=== PATIENT | male | born 1950 | race Caucasian/White ===

== ENCOUNTER 2018-03-27 09:20 | Day surgery (SDC) | payer OTHER ==
[2018-03-26 08:42] VITALS: BMI 31.4
--- NOTE | 2018-03-27 08:08 | P.GSHP ---
History of Present Illness H&P Date: 03/27/18 CHIEF COMPLAINT: Colon screen HISTORY OF PRESENT ILLNESS: The patient is a 67-year-old male who presents for colon screen. Lower endoscopy was offered for further evaluation and management. PAST MEDICAL HISTORY: Please see list. PAST SURGICAL HISTORY: Please see list. MEDICATIONS: Please see list. ALLERGIES: Please see list. SOCIAL HISTORY: No illicit drug use FAMILY HISTORY: No reports of Crohn disease or ulcerative colitis. REVIEW OF ORGAN SYSTEMS: CONSTITUTIONAL: No reports of fevers or chills. PHYSICAL EXAM: VITAL SIGNS: Stable GENERAL: Well-developed pleasant in no acute distress. HEENT: No scleral icterus. Extraocular movements grossly intact. Moist buccal mucosa. NECK: Supple without lymphadenopathy. CHEST: Unlabored respirations. Equal bilateral excursions. CARDIOVASCULAR: Regular rate and rhythm. Distal 2+ pulses. ABDOMEN: Soft, nontender, nondistended. MUSCULOSKELETAL: No clubbing, cyanosis, or edema. ASSESSMENT: 1. Colon screen. PLAN: 1. Recommend proceeding with a lower endoscopy Past Medical History Past Medical History: Cancer, CVA/TIA, Diabetes Mellitus, Osteoarthritis (OA), Pneumonia, Prostate Disorder Additional Past Medical History / Comment(s): cluster headaches, kidney stones, gout, stroke-unknown date-no effects, hx prostate cancer-tx with radiation, diet control diabetic, bleeds easily, History of Any Multi-Drug Resistant Organisms: None Reported Past Surgical History: Orthopedic Surgery Additional Past Surgical History / Comment(s): rt elbow surgery x 2, left cataract Past Anesthesia/Blood Transfusion Reactions: No Reported Reaction Smoking Status: Never smoker - Past Family History Son(s) Family Medical History: Cancer Mother Family Medical History: Deep Vein Thrombosis (DVT) Medications and Allergies Home Medications Medication Instructions Recorded Confirmed Type Allopurinol [Zyloprim] 300 mg PO DAILY 09/23/14 03/26/18 History Aspirin 81 mg PO DAILY 09/23/14 03/26/18 History Verapamil HCl [Calan] 80 mg PO Q48H 09/23/14 03/26/18 History Atorvastatin Calcium [Lipitor] 20 mg PO DAILY 03/26/18 03/26/18 History Tamsulosin HCl [Flomax] 0.4 mg PO HS 03/26/18 03/26/18 History Verapamil [Isoptin] 40 mg PO Q48H 03/26/18 03/26/18 History Vitamin D-2 1.25 mg PO Q14D 03/26/18 03/26/18 History Allergies Allergy/AdvReac Type Severity Reaction Status Date / Time bee pollen [Bee Pollen] Allergy Anaphylaxis Verified 03/26/18 08:29
[~2018-03-27 09:20] MED LIST: LACTATED RINGERS 1,000 ML IV SCH; LIDOCAINE 1% 20 ML VIAL (10MG/ML) FOR IV START INTRADERMA PRN
[2018-03-27] MEDS ORDERED: LACTATED RINGERS 1,000 ML IV ONE (10:43)
[2018-03-27 10:48] VITALS: RESP 18; TEMP 97
[2018-03-27 10:54] LABS: Glucose,Whole Blood 116 mg/dL (75-99)
[2018-03-27] MEDS ORDERED: PROPOFOL 10 MG/ML 20 ML VIAL IV ONE (11:32)
--- NOTE | 2018-03-27 12:02 | P.PCN ---
Date of Procedure: 03/27/18 Description of Procedure: PREOPERATIVE DIAGNOSIS: Colonoscopy screening. POSTOPERATIVE DIAGNOSIS: Colonoscopy screening. Diverticulosis, scattered. Arteriovenous malformation along the rectum Internal hemorrhoids, grade 2 Prostatic hyperplasia OPERATION: Colonoscopy to the ileocecal valve and appendiceal orifice. SURGEON: Caroline Wilson MD. ANESTHESIA: MAC. INDICATIONS: The patient is a 67-year-old male who presents for colonoscopy screening. Benefits and risks were described and informed consent was obtained. DESCRIPTION OF PROCEDURE: The patient had undergone Gatorade, MiraLAX and Dulcolax prep. He had been brought into the operating room and laid in the left lateral decubitus position. After adequate intravenous sedation, the rectum was examined with 2% lidocaine jelly. The prostate was firm and without nodularity. No external hemorrhoids were encountered. The rectal tone was within normal limits. No lesions were palpated in the rectal vault. An Olympus colonoscope was advanced until the ileocecal valve and appendiceal orifice were clearly viewed. The prep was excellent with clear visualization of the mucosal folds. The scope was removed with visualization of each mucosal fold. Sigmoid diverticulosis was encountered. No colonic polyps were found. Arteriovenous malformation involving the rectum was identified with minimal oozing. Retroflexion of the scope demonstrated grade 2 internal hemorrhoids without active bleeding or inflammation. The colon was desufflated. The patient had tolerated the procedure well. Withdrawal time was over 6 minutes. FINDINGS: Internal hemorrhoids, grade 2 No external prolapsed hemorrhoids. Arteriovenous malformations of rectum with recent bleed. No adenomatous polyps. Moderate sigmoid diverticulosis with a few scattered diverticulosis RECOMMENDATIONS: Lower endoscopy in 5 years, 2022 Plan - Discharge Summary New Discharge Prescriptions: No Action Verapamil HCl [Calan] 80 mg PO Q48H Aspirin 81 mg PO DAILY Allopurinol [Zyloprim] 300 mg PO DAILY Verapamil [Isoptin] 40 mg PO Q48H Tamsulosin HCl [Flomax] 0.4 mg PO HS Atorvastatin Calcium [Lipitor] 20 mg PO DAILY Vitamin D-2 1.25 mg PO Q14D Discharge Medication List Allopurinol [Zyloprim] 300 mg PO DAILY 09/23/14 [History] Aspirin 81 mg PO DAILY 09/23/14 [History] Verapamil HCl [Calan] 80 mg PO Q48H 09/23/14 [History] Atorvastatin Calcium [Lipitor] 20 mg PO DAILY 03/26/18 [History] Tamsulosin HCl [Flomax] 0.4 mg PO HS 03/26/18 [History] Verapamil [Isoptin] 40 mg PO Q48H 03/26/18 [History] Vitamin D-2 1.25 mg PO Q14D 03/26/18 [History]
[2018-03-27 12:09] LABS: Glucose,Whole Blood 116 mg/dL (75-99)
[2018-03-27 12:16] VITALS: BP 113/72; PULSE 60
== END 2018-03-27 12:35 | disposition home or self-care (01) ==
LOC: ORWHC2ENDO 09:20
PROVIDERS: ATTEND Surgery Plastic and Reconstructive Surgery
DX: Z12.11 Encounter for screening for malignant neoplasm of colon (principal); Q27.39 Arteriovenous malformation, other site; K64.1 Second degree hemorrhoids; E11.9 Type 2 diabetes mellitus without complications; N40.0 Benign prostatic hyperplasia without lower urinary tract symptoms; I10 Essential (primary) hypertension; E78.5 Hyperlipidemia, unspecified; M19.90 Unspecified osteoarthritis, unspecified site; Z86.73 Personal history of transient ischemic attack (TIA), and cerebral infarction without residual deficits; Z85.46 Personal history of malignant neoplasm of prostate; Z92.3 Personal history of irradiation; Z79.82 Long term (current) use of aspirin; Z79.899 Other long term (current) drug therapy; Z91.030 Bee allergy status
CPT/HCPCS: J2704; G0121

== ENCOUNTER 2018-05-28 08:42 | Emergency (ER) | payer MEDICARE, OTHER ==
[2018-05-28] MEDS ORDERED: ORPHENADRINE 30 MG/ML 2 ML VIAL IVP STA (08:57)
[2018-05-28] MEDS ORDERED: diphenhydrAMINE 50 MG/ML 1 ML VIAL IVP STA (08:57)
[2018-05-28] MEDS ORDERED: KETOROLAC 30 MG/ML 1 ML VIAL IVP STA (08:57)
[2018-05-28] MEDS ORDERED: SODIUM CHLORIDE 0.9% 500 ML IV ONE (08:58)
[2018-05-28] MEDS ORDERED: METOCLOPRAMIDE 5 MG/ML 2 ML VIAL IVP STA (08:58)
--- NOTE | 2018-05-28 09:03 | ED ---
Headache HPI - General Chief Complaint: Headache Stated Complaint: cluster headches Time Seen by Provider: 05/28/18 08:51 Source: patient, RN notes reviewed Mode of arrival: ambulatory Limitations: no limitations - History of Present Illness Initial Comments: 67-year-old male presents emergency Department chief complaint of a headache. Patient states that his been diagnosed with cluster headaches in the past. He always gets pain in the occipital region. He states started yesterday went and seen his primary care physician who gave her sumatriptan. Patient states that patient states that this is like his typical headaches he denies any blurred vision, photophobia, nausea vomiting, fever or chills. He states he has no neck pain no focal weakness. He states that the Imitrex did help some but the headache returned. Patient states he has had to come to the ER several times for headaches in the past. He's had multiple imaging done with no acute findings. - Related Data Home Medications Medication Instructions Recorded Confirmed Allopurinol [Zyloprim] 300 mg PO DAILY 09/23/14 05/28/18 Aspirin 81 mg PO DAILY 09/23/14 05/28/18 Verapamil HCl [Calan] 80 mg PO Q48H 09/23/14 05/28/18 Atorvastatin Calcium [Lipitor] 20 mg PO DAILY 03/26/18 05/28/18 Tamsulosin HCl [Flomax] 0.4 mg PO HS 03/26/18 05/28/18 Vitamin D-2 1.25 mg PO Q14D 03/26/18 05/28/18 Triamcinolone 0.025% Cream 1 applic TOPICAL DAILY PRN 05/28/18 05/28/18 [Kenalog 0.025% Cream] Allergies Allergy/AdvReac Type Severity Reaction Status Date / Time bee pollen [Bee Pollen] Allergy Anaphylaxis Verified 05/28/18 09:16 Review of Systems ROS Statement: Those systems with pertinent positive or pertinent negative responses have been documented in the HPI. ROS Other: All systems not noted in ROS Statement are negative. Past Medical History Past Medical History: Cancer, CVA/TIA, Diabetes Mellitus, Osteoarthritis (OA), Pneumonia, Prostate Disorder Additional Past Medical History / Comment(s): cluster headaches, kidney stones, gout, stroke-unknown date-no effects, hx prostate cancer-tx with radiation, diet control diabetic, bleeds easily, History of Any Multi-Drug Resistant Organisms: None Reported Past Surgical History: Orthopedic Surgery Additional Past Surgical History / Comment(s): rt elbow surgery x 2, left cataract Past Anesthesia/Blood Transfusion Reactions: No Reported Reaction Past Psychological History: No Psychological Hx Reported Smoking Status: Never smoker Past Alcohol Use History: None Reported Past Drug Use History: None Reported - Past Family History Son(s) Family Medical History: Cancer Mother Family Medical History: Deep Vein Thrombosis (DVT) General Exam Limitations: no limitations General appearance: alert, in no apparent distress Head exam: Present: atraumatic, normocephalic, normal inspection Neck exam: Present: normal inspection, full ROM. Absent: tenderness, meningismus, lymphadenopathy Respiratory exam: Present: normal lung sounds bilaterally. Absent: respiratory distress, wheezes, rales, rhonchi, stridor Cardiovascular Exam: Present: regular rate, normal rhythm, normal heart sounds. Absent: systolic murmur, diastolic murmur, rubs, gallop, clicks Neurological exam: Present: alert, oriented X3, CN II-XII intact, reflexes normal, other (Finger to nose intact bilaterally without over shooting). Absent : motor sensory deficit Course Vital Signs 05/28/18 08:43 Temperature 98.3 F Pulse Rate 78 Respiratory 18 Rate Blood Pressure 108/65 O2 Sat by Pulse 98 Oximetry Medical Decision Making - Medical Decision Making 67-year-old male presented for chronic headache issues. Patient had normal neuro exam and was given IV medications and which he states that his headache is completely resolved. Neuro exam was preformed in his normal. Patient will follow-up with his PCP return for any worsening symptoms. Disposition Clinical Impression: Headache Disposition: HOME SELF-CARE Condition: Stable Instructions: Acute Headache (ED) Additional Instructions: Please return to the Emergency Department if symptoms worsen or any other concerns. Is patient prescribed a controlled substance at d/c from ED?: No Referrals: Homer Lawton DO [Primary Care Provider] - 1-2 days Time of Disposition: 11:09
[2018-05-28] MEDS ORDERED: DIAZEPAM 5 MG/ML 2 ML INJ IVP STA (10:21)
[2018-05-28 11:30] VITALS: BP 106/61; PULSE 50; RESP 16; TEMP 97.8
== END 2018-05-28 11:41 | disposition home or self-care (01) ==
LOC: EC 08:42
DX: R51 Headache (principal); E11.9 Type 2 diabetes mellitus without complications; M19.90 Unspecified osteoarthritis, unspecified site; M10.9 Gout, unspecified; Z79.82 Long term (current) use of aspirin; Z79.899 Other long term (current) drug therapy; Z91.018 Allergy to other foods; Z87.442 Personal history of urinary calculi; Z85.46 Personal history of malignant neoplasm of prostate; Z92.3 Personal history of irradiation
CPT/HCPCS: 99283; 96374; 96375 ×4; 96361; J1200; J2360; J2765; J3360; J1885

== ENCOUNTER → 2018-05-29 | Outpatient (CLI) | payer OTHER, MEDICARE ==
--- NOTE | 2018-05-29 15:30 | CT ---
EXAMINATION TYPE: CT brain wo con DATE OF EXAM: 05/29/2018 COMPARISON: 03/03/2016 HISTORY: 67-year-old male Cluster headache syndrome TECHNIQUE: Examination was done in axial plane without intravenous contrast. Coronal and sagittal r econstructions performed. CT DLP: 956.6 mGycm Automated exposure control for dose reduction was used. FINDINGS: There is no evidence of acute intracranial hemorrhage, acute ischemic changes, mass, mass-effect, or extra-axial fluid collection. There is no effacement of cerebral sulci or basal subarachnoid cister ns. There is no hydrocephalus. There is no midline shift. Skaggs-white matter distinction is preserv ed. Megacisterna magna incidentally noted. Paranasal sinuses and mastoid air cells well pneumatized. Orbits and globes are intact. IMPRESSION: No acute intracranial abnormality seen.
== END ==
LOC: RADCTMAIN 14:38
PROVIDERS: ATTEND Family Medicine
DX: G44.009 Cluster headache syndrome, unspecified, not intractable (principal)
CPT/HCPCS: 70450

== ENCOUNTER → 2021-01-03 | Outpatient (CLI) | payer BC ==
--- NOTE | 2021-01-03 15:17 | XR ---
EXAMINATION TYPE: XR Hip Complete RT DATE OF EXAM: 01/03/2021 CLINICAL HISTORY: Right hip pain. TECHNIQUE: AP and frogleg views of the right hip are obtained. COMPARISON: CT abdomen and pelvis March 03, 2016. FINDINGS: There is no acute fracture/dislocation evident in the right hip. Mild to moderate superior joint space loss with mild acetabular spurring and right hip is redemonstrated. No significant molina ge from 2016 CT. New brachytherapy seeds in the prostate gland overlying the pubic symphysis noted. IMPRESSION: As above.
== END ==
LOC: RADXRMAIN 14:55
PROVIDERS: ATTEND Family Medicine
DX: M76.891 Other specified enthesopathies of right lower limb, excluding foot (principal)
CPT/HCPCS: 73502

== ENCOUNTER 2021-07-08 13:38 | Emergency (ER) | payer BC, MEDICARE ==
[2021-07-08 13:49] VITALS: TEMP 98
[2021-07-08 14:10] VITALS: RESP 20
[2021-07-08 15:08] VITALS: PULSE 61
[2021-07-08] MEDS ORDERED: methylPREDNISolone SOD SUCCI 125 MG/2 ML VIAL IV STA (15:25)
[2021-07-08] MEDS ORDERED: diphenhydrAMINE 50 MG/ML 1 ML VIAL IVP STA (15:25)
[2021-07-08] MEDS ORDERED: SODIUM CHLORIDE 0.9% 500 ML 500 ML IV STA (15:25)
[2021-07-08] MEDS ORDERED: FAMOTIDINE 20 MG/2 ML VIAL IV STA (15:25)
--- NOTE | 2021-07-08 16:15 | ED ---
Allergic Reaction HPI - General Chief complaint: Allergic Reaction Stated complaint: Allergic Reaction Bee Sting Time Seen by Provider: 07/08/21 14:45 Source: patient Mode of arrival: wheelchair Limitations: no limitations - History of Present Illness Initial Comments: Patient is a 70-year-old male presenting to the emergency department after being stung and his left index finger approximately 2 hours prior to arrival.. 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 He does not have an EpiPen. Patient states he is having increasing pain in his left finger that is shooting up his left arm. He states he only got stung by one yellow jacket. He denies any difficulty in breathing, no scratchy throat, no hives. He denies any nausea or vomiting. Patient denies any fevers or chills. No chest pain. He has no further complaints. He did not take any medications prior to arrival. - Related Data Home Medications Medication Instructions Recorded Confirmed Aspirin 81 mg PO DAILY 09/23/14 05/28/18 Verapamil HCl [Calan] 80 mg PO Q48H 09/23/14 05/28/18 allopurinoL [Zyloprim] 300 mg PO DAILY 09/23/14 05/28/18 Atorvastatin Calcium [Lipitor] 20 mg PO DAILY 03/26/18 05/28/18 Tamsulosin HCl [Flomax] 0.4 mg PO HS 03/26/18 05/28/18 Vitamin D-2 1.25 mg PO Q14D 03/26/18 05/28/18 Triamcinolone 0.025% Cream 1 applic TOPICAL DAILY PRN 05/28/18 05/28/18 [Kenalog 0.025% Cream] Previous Rx's Medication Instructions Recorded EPINEPHrine (Auto Inject) [Epipen] 0.3 mg IM ONCE PRN #2 each 07/08/21 predniSONE [Deltasone] 20 mg PO DAILY 5 Days #5 tab 07/08/21 Allergies Allergy/AdvReac Type Severity Reaction Status Date / Time bee pollen [Bee Pollen] Allergy Anaphylaxis Verified 07/08/21 13:49 Review of Systems ROS Statement: Those systems with pertinent positive or pertinent negative responses have been documented in the HPI. ROS Other: All systems not noted in ROS Statement are negative. Past Medical History Past Medical History: Cancer, CVA/TIA, Diabetes Mellitus, Osteoarthritis (OA), Pneumonia, Prostate Disorder Additional Past Medical History / Comment(s): cluster headaches, kidney stones, gout, stroke-unknown date-no effects, hx prostate cancer-tx with radiation, diet control diabetic, bleeds easily, History of Any Multi-Drug Resistant Organisms: None Reported Past Surgical History: Orthopedic Surgery Additional Past Surgical History / Comment(s): rt elbow surgery x 2, left cataract Past Anesthesia/Blood Transfusion Reactions: No Reported Reaction Past Psychological History: No Psychological Hx Reported Smoking Status: Never smoker Past Alcohol Use History: None Reported Past Drug Use History: None Reported - Past Family History Son(s) Family Medical History: Cancer Mother Family Medical History: Deep Vein Thrombosis (DVT) General Exam - General Exam Comments Initial Comments: GENERAL: Patient is well-developed and well-nourished. Patient is nontoxic and in no acute distress. HEAD: Atraumatic, normocephalic. EYES: Pupils equal round and reactive to light, extraocular movements intact, sclera anicteric, conjunctiva are normal. Eyelids were unremarkable. ENT: TMs normal, nares patent, oropharynx clear without exudates. Moist mucous membranes. No tongue swelling. NECK: Normal range of motion, supple without lymphadenopathy or JVD. LUNGS: Unlabored respirations. Breath sounds clear to auscultation bilaterally and equal. No wheezes rales or rhonchi. HEART: Regular rate and rhythm without murmurs, rubs or gallops. ABDOMEN: Soft, nontender, normoactive bowel sounds. No guarding, no rebound. No masses appreciated. : Deferred MUSCULOSKELETAL: Normal extremities with adequate strength and normal range of motion, no pitting or edema. No clubbing or cyanosis. NEUROLOGICAL: Patient is alert and oriented x 3. Motor and sensory are also intact. Cranial nerves II through XII grossly intact. Symmetrical smile. Normal speech, normal gait. PSYCH: Normal mood, normal affect. SKIN: Warm, Dry, normal turgor, no rashes or lesions noted. Limitations: no limitations Course Vital Signs 07/08/21 07/08/21 07/08/21 13:47 14:09 15:05 Temperature 98 F Pulse Rate 71 65 61 Respiratory 16 20 20 Rate Blood Pressure 121/80 109/65 O2 Sat by Pulse 97 99 99 Oximetry 07/08/21 16:35 Temperature Pulse Rate 61 Respiratory 20 Rate Blood Pressure 138/78 O2 Sat by Pulse 99 Oximetry Medical Decision Making - Medical Decision Making Patient is a 70-year-old male presenting after being stung by a single yellowjacket and his left index finger. He does have an ALLERGY to bees. This happened about 2 hours prior to arrival. His vital signs are stable. He has some mild swelling noted to his left index finger otherwise no adverse findings on his exam. He is having no difficulty breathing, no rashes. Patient was given IV Benadryl, Solu-Medrol and Pepcid. On reexamination of the patient, he was eating and drinking without difficulty and no adverse side effects. He did mention a single jolt of pain from his left index finger up into his left neck. I did do an EKG which showed no acute abnormality, troponin is negative. Patient will be discharged home with prescription for EpiPen as he does not have one, a few days of steroids as well. We did discuss taking Benadryl every 8 hours as needed for any pruritus. Patient is agreeable with this plan of care. Return parameters were discussed with him and his and they both verbalized understanding. Case discussed with Dr. Ramon. - Lab Data Lab Results 07/08/21 Range/Units 16:34 Troponin I <0.012 (0.000-0.034) ng/mL - EKG Data EKG Comments: Sinus bradycardia, left anterior fascicular block, no signs of acute ST segment elevation. Similar to previous on 03/03/2016. Ventricular rate 58, OR interval 174, QT 434. Disposition Clinical Impression: Bee sting Disposition: HOME SELF-CARE Condition: Stable Instructions (If sedation given, give patient instructions): Insect Bite or Sting (ED) Additional Instructions: Please return to the Emergency Department if symptoms worsen or any other concerns. Take steroids as prescribed, starting tomorrow. May take Benadryl every 8 hours as needed for itchiness. Prescriptions: predniSONE [Deltasone] 20 mg PO DAILY 5 Days #5 tab EPINEPHrine (Auto Inject) [Epipen] 0.3 mg IM ONCE PRN #2 each PRN Reason: Anaphylaxis Is patient prescribed a controlled substance at d/c from ED?: No Referrals: Homer Lawton DO [Primary Care Provider] - 1-2 days Time of Disposition: 17:41
[2021-07-08 16:40] VITALS: BP 138/78
== END 2021-07-08 17:48 | disposition home or self-care (01) ==
LOC: EC 13:38
DX: T63.441A Toxic effect of venom of bees, accidental (unintentional), initial encounter (principal); E11.9 Type 2 diabetes mellitus without complications; M19.90 Unspecified osteoarthritis, unspecified site; M10.9 Gout, unspecified; Z79.82 Long term (current) use of aspirin; Z79.52 Long term (current) use of systemic steroids; Z79.899 Other long term (current) drug therapy; Z86.73 Personal history of transient ischemic attack (TIA), and cerebral infarction without residual deficits
CPT/HCPCS: 36415; 93005; 84484; 96374; 96375 ×2; 96361 ×2; 99283; J1200; J2930

== ENCOUNTER → 2021-09-07 | Outpatient (CLI) | payer MEDICARE ==
--- NOTE | 2021-09-07 10:47 | CT ---
EXAMINATION TYPE: CT brain wo con DATE OF EXAM: 09/07/2021 COMPARISON: 05/29/2018 HISTORY: 71-year-old male R51.9, Headache TECHNIQUE: Examination was done in axial plane without intravenous contrast. Coronal and sagittal r econstructions performed. CT DLP: 1054.2 mGycm Automated exposure control for dose reduction was used. FINDINGS: There is no evidence of acute intracranial hemorrhage, acute ischemic changes, mass, mass-effect, or extra-axial fluid collection. There is no effacement of cerebral sulci or basal subarachnoid cister ns. There is no hydrocephalus. There is no midline shift. Skaggs-white matter distinction is preserv ed. Mild atherosclerotic calcifications in the carotid siphons. Unchanged meniscus cisterna magna. Paranasal sinuses and mastoid air cells are well pneumatized. Leftward nasal septal deviation. Orbits and globes are intact. IMPRESSION: No acute intracranial abnormality seen. Megacisterna magna again, incidentally noted.
== END | disposition home or self-care (01) ==
LOC: RADCTMAIN 09:37
PROVIDERS: ATTEND Family Medicine
DX: R51.9 Headache, unspecified (principal)
CPT/HCPCS: 70450

== ENCOUNTER → 2023-02-16 | Outpatient (CLI) | payer MEDICARE ==
--- NOTE | 2023-02-16 08:51 | XR ---
EXAMINATION TYPE: XR shoulder complete RT DATE OF EXAM: 02/16/2023 8:46 AM INDICATION: Patient age:Male; 72 years old; Reason for study: M25.511 Pain right shoulder; COMPARISON: None TECHNIQUE: The right shoulder was examined in AP, internally rotated and scapular Y projections. . FINDINGS: No evidence of acute osseous pathology, joint dislocation, or soft tissue swelling. Mild AC joint art hropathy with spurring demonstrated. Mild degenerative changes of the right shoulder with marginal sp urring and subchondral cystic formation. The remaining portions of the visualized chest are unremarka ble. IMPRESSION: 1. No acute osseous pathology. 2. Mild degenerative changes of the right shoulder and AC joint arthropathy.
== END | disposition home or self-care (01) ==
LOC: RADXRMAIN 08:32
PROVIDERS: ATTEND Family Medicine
DX: M19.011 Primary osteoarthritis, right shoulder (principal)

== ENCOUNTER 2023-04-18 07:16 | Day surgery (SDC) | payer MEDICARE ==
[2023-04-16 10:24] VITALS: BMI 31.4
[~2023-04-18 07:16] MED LIST changes: +LIDOCAINE 1% (10MG/ML) FOR IV START INTRADERMA PRN; -LIDOCAINE 1% 20 ML VIAL (10MG/ML) FOR IV START INTRADERMA PRN
[2023-04-18 07:47] VITALS: TEMP 97
[2023-04-18 07:55] LABS: Glucose,Whole Blood 137 mg/dL (70-110)
[2023-04-18] MEDS ORDERED: LIDOCAINE 2% INJ 20 MG/ML (2 ML VIAL) ONE (07:57)
[2023-04-18] MEDS ORDERED: PROPOFOL 10 MG/ML 20 ML VIAL IV ONE (07:57)
--- NOTE | 2023-04-18 08:23 | P.GSHP ---
History of Present Illness H&P Date: 04/18/23 CHIEF COMPLAINT: Colon screen HISTORY OF PRESENT ILLNESS: The patient is a 72-year-old male who presents for colon screen. Lower endoscopy was offered for further evaluation and management. PAST MEDICAL HISTORY: Please see list. PAST SURGICAL HISTORY: Please see list. MEDICATIONS: Please see list. ALLERGIES: Please see list. SOCIAL HISTORY: No illicit drug use FAMILY HISTORY: No reports of Crohn disease or ulcerative colitis. REVIEW OF ORGAN SYSTEMS: CONSTITUTIONAL: No reports of fevers or chills. PHYSICAL EXAM: VITAL SIGNS: Stable GENERAL: Well-developed pleasant in no acute distress. HEENT: No scleral icterus. Extraocular movements grossly intact. Moist buccal mucosa. NECK: Supple without lymphadenopathy. CHEST: Unlabored respirations. Equal bilateral excursions. CARDIOVASCULAR: Regular rate and rhythm. Distal 2+ pulses. ABDOMEN: Soft, nontender, nondistended. MUSCULOSKELETAL: No clubbing, cyanosis, or edema. ASSESSMENT: 1. Colon screen. PLAN: 1. Recommend proceeding with a lower endoscopy Past Medical History Past Medical History: Cancer, CVA/TIA, Diabetes Mellitus, Hearing Disorder / Deafness, Hypertension, Osteoarthritis (OA), Pneumonia Additional Past Medical History / Comment(s): Cluster headaches, hx kidney stones, gout, hx stroke-unknown date-no effects, hx prostate cancer-tx with radiation 6 yrs ago, diet controllled diabetes, bleeds easily, deaf in right ear, hard of hearing in left ear. Has sunburn on hands. History of Any Multi-Drug Resistant Organisms: None Reported Past Surgical History: Orthopedic Surgery Additional Past Surgical History / Comment(s): Right elbow surgery X2, left cataract removed. Past Anesthesia/Blood Transfusion Reactions: No Reported Reaction Past Psychological History: No Psychological Hx Reported Smoking Status: Never smoker Past Alcohol Use History: None Reported Past Drug Use History: None Reported - Past Family History Son(s) Family Medical History: Cancer Mother Family Medical History: Deep Vein Thrombosis (DVT) Medications and Allergies Home Medications Medication Instructions Recorded Confirmed Type Aspirin 81 mg PO QAM 09/23/14 04/18/23 History Verapamil HCl [Calan] 80 mg PO QAM 09/23/14 04/18/23 History allopurinoL [Zyloprim] 300 mg PO QAM 09/23/14 04/18/23 History EPINEPHrine (Auto Inject) [Epipen] 0.3 mg IM ONCE PRN #2 each 07/08/21 04/18/23 Rx Ergocalciferol [Vitamin D2 (1250 1,250 mcg PO AMOR 04/16/23 04/18/23 History Mcg = [id number] Iu)] Magnesium 400 mg PO QAM 04/16/23 04/18/23 History Allergies Allergy/AdvReac Type Severity Reaction Status Date / Time bee pollen [Bee Pollen] Allergy Anaphylaxis Verified 04/18/23 07:39 Surgical - Exam Vital Signs Temp Pulse BP Pulse Ox 97 F L 61 118/70 97 04/18/23 07:46 04/18/23 07:46 04/18/23 07:46 04/18/23 07:46 Results - Labs Abnormal Lab Results - Last 24 Hours (Table) 04/18/23 Range/Units 07:54 POC Glucose (mg/dL) 137 H (70-110) mg/dL
[2023-04-18 08:28] VITALS: BP 104/60; PULSE 67; RESP 16
--- NOTE | 2023-04-18 09:07 | P.PCN ---
Date of Procedure: 04/18/23 Description of Procedure: PREOPERATIVE DIAGNOSIS: Colonoscopy screening. POSTOPERATIVE DIAGNOSIS: Colonoscopy screening. Severe sigmoid diverticulosis OPERATION: Colonoscopy to the cecum, ileocecal valve and appendiceal orifice. SURGEON: Caroline Wilson MD. ANESTHESIA: MAC. INDICATIONS: The patient is a 72-year-old male who presents for colonoscopy screening. Benefits and risks were described and informed consent was obtained. DESCRIPTION OF PROCEDURE: The patient had undergone Sutab prep. The patient had been brought into the operating room and laid in the left lateral decubitus position. After adequate intravenous sedation, the rectum was examined with 2% lidocaine jelly. External hemorrhoids were encountered. The rectal tone was within normal limits. No lesions were palpated in the rectal vault. An Olympus colonoscope was advanced until the cecum, ileocecal valve and appendiceal orifice were clearly viewed. The prep was fair. Severe sigmoid diverticulosis was encountered. No colonic polyps were found. No evidence of focal colitis was found. Retroflexion of the scope demonstrated grade 3 internal hemorrhoids without active bleeding or inflammation. The colon was desufflated. The patient had tolerated the procedure well. Withdrawal time was over 6 minutes. FINDINGS: Aronchick preparation quality scale 3 (1-5) Internal hemorrhoids, grade 3 External prolapsed hemorrhoids, grade 3 No arteriovenous malformations. No adenomatous polyps. Severe sigmoid diverticulosis No focal colitis. RECOMMENDATIONS: Lower endoscopy 10 years, 2032 Plan - Discharge Summary Discharge Rx Participant: No New Discharge Prescriptions: Continue Verapamil HCl [Calan] 80 mg PO QAM Aspirin 81 mg PO QAM allopurinoL [Zyloprim] 300 mg PO QAM EPINEPHrine (Auto Inject) [Epipen] 0.3 mg IM ONCE PRN #2 each PRN Reason: Anaphylaxis Ergocalciferol [Vitamin D2 (1250 Mcg = 44981 Iu)] 1,250 mcg PO AMOR Magnesium 400 mg PO QAM Discharge Medication List Aspirin 81 mg PO QAM 09/23/14 [History] Verapamil HCl [Calan] 80 mg PO QAM 09/23/14 [History] allopurinoL [Zyloprim] 300 mg PO QAM 09/23/14 [History] EPINEPHrine (Auto Inject) [Epipen] 0.3 mg IM ONCE PRN #2 each 07/08/21 [Rx] Ergocalciferol [Vitamin D2 (1250 Mcg = 08911 Iu)] 1,250 mcg PO AMOR 04/16/23 [History] Magnesium 400 mg PO QAM 04/16/23 [History] Follow up Appointment(s)/Referral(s): Caroline Wilson MD [STAFF PHYSICIAN] - As Needed Patient Instructions/Handouts: Diverticulosis (DC), Diverticulosis (GEN), Diverticulitis Diet (ED), Diverticulosis Diet (GEN) Activity/Diet/Wound Care/Special Instructions: Repeat colonoscopy 10 years2032 Discharge Disposition: HOME SELF-CARE
== END 2023-04-18 09:21 | disposition home or self-care (01) ==
LOC: ORWHC2ENDO 07:16
PROVIDERS: ATTEND Surgery Plastic and Reconstructive Surgery
DX: Z12.11 Encounter for screening for malignant neoplasm of colon (principal); K57.30 Diverticulosis of large intestine without perforation or abscess without bleeding; K64.2 Third degree hemorrhoids; K64.4 Residual hemorrhoidal skin tags; E11.9 Type 2 diabetes mellitus without complications; I10 Essential (primary) hypertension; M19.90 Unspecified osteoarthritis, unspecified site; J18.9 Pneumonia, unspecified organism; Z86.73 Personal history of transient ischemic attack (TIA), and cerebral infarction without residual deficits; Z98.890 Other specified postprocedural states; Z98.42 Cataract extraction status, left eye; Z80.8 Family history of malignant neoplasm of other organs or systems; Z79.82 Long term (current) use of aspirin; Z79.899 Other long term (current) drug therapy; Z91.030 Bee allergy status
CPT/HCPCS: J2704; J2001; G0121

== ENCOUNTER → 2024-02-21 | Outpatient (CLI) | payer MEDICARE ==
[2024-02-21 10:49] LABS: INR 0.9 (<1.2); Prothrombin Time 9.9 sec (10.0-12.5)
[2024-02-21 16:13] LABS: Basophils # (A) 0.08 X 10*3/uL (0.00-0.10); Basophils % (A) 1.1 %; Eosinophils % (A) 4.3 %; HCT 45.1 % (39.6-50.0); Lymphocytes # (A) 1.82 X 10*3/uL (0.90-5.00); Lymphocytes % (A) 25.9 %; MCH 29.9 pg (27.0-32.0); MCV 96.2 FL (80.0-97.0); Mean Platelet Volume 10.7 FL (9.5-12.2); Monocytes # (A) 0.52 X 10*3/uL (0.20-1.00); Monocytes % (A) 7.4 %; NRBC Per 100 WBC 0 X 10*3/uL (0.00-0.01); Neutrophils # (A) 4.28 X 10*3/uL (1.80-7.70); Platelet Count 299 X 10*3/uL (140-440); RBC 4.69 X 10*6/uL (4.40-5.60); RDW 14.2 % (11.5-14.5); WBC 7.02 X 10*3/uL (4.50-10.00)
[2024-02-21 16:16] LABS: BUN/Creat Ratio 12.42 Ratio (12.00-20.00); Blood Urea Nitrogen 14.9 mg/dL (9.0-27.0); Calcium 9.5 mg/dL (8.7-10.3); Carbon Dioxide 26.7 mmol/L (21.6-31.8); Chloride 105 mmol/L (96-109); Glucose 145 mg/dL (70-110); Potassium 4.7 mmol/L (3.5-5.5); Sodium 142 mmol/L (135-145)
== END | disposition home or self-care (01) ==
LOC: LABWHC1 10:13
PROVIDERS: ATTEND Family Medicine
DX: Z01.812 Encounter for preprocedural laboratory examination (principal); E11.9 Type 2 diabetes mellitus without complications
CPT/HCPCS: 36415; 80048; 85025; 85610; 85730